=== PATIENT | female | born 1945 | race Caucasian/White ===

== ENCOUNTER → 2020-03-26 11:30 | Outpatient (CLI) | payer MEDICARE, OTHER, SELFPAY | PROVIDERS: PCP Nurse Practitioner Family; Referring Provider Orthopaedic Surgery; Visit Provider Orthopaedic Surgery | DX: Z01.818 Encounter for other preprocedural examination (principal) | CPT/HCPCS: 36415; 83735; 87077; 87081 ==

== ENCOUNTER 2020-05-07 08:54 | Observation (INO) | payer MEDICARE, OTHER, SELFPAY ==
[2020-05-07] VITALS (14 sets, daily range): BP systolic 102–142; BP diastolic 60–94; PULSE 75–103; RESP 14–20; TEMP 35.8–36.9; O2SAT 93–100; BMI 27.8
[2020-05-07] MEDS: Acetaminophen 500 MG Tablet 1000 MG PO ×2 (07:00→22:01)
[2020-05-07] MEDS: Lactated Ringers 1,000 ML 100 ML IV (09:40)
[2020-05-07 09:46] LABS: Bedside Glucose 109 mg/dL (70-110)
[2020-05-07] MEDS: Cefazolin 2 GM in 0.9% Normal Saline 100 ML IV (10:01)
--- NOTE | 2020-05-07 10:25 | FEM_PTH ---
PATIENT: TOMA BUENO LOC: MS3 U#:[id number] AGE/SX: 74/F [place] [facility] [place] RE05/07/[address]: Dr. Quinton Austin DO : 1945 BED: 1 DIS: 05/08/2020 SPEC #: [id number] RECD: 05/07/20 11:58 STATUS: LUCILLE REQ #: [id number] [place]: 05/07/20 10:[address]: Quinton Austin DEPT: SURGICAL PATHOLOGY RECD BY: Marj Martinez ENTERED: 05/07/20 13:48 SP TYPE: FEM HEAD OTHR DR: Ema Moyer, RONEY Tissues: Femoral region, NOS Procedures: Decalcification bone/plaque Surgery Specimen Level V HEADER OPERATION: ERAS, total hip replacement PRE-OP DIAGNOSIS: Primary osteoarthritis TISSUE SUBMITTED: Left hip bone MICROSCOPIC DIAGNOSIS Left hip bone, total hip replacement/resection: Femoral head with degenerative osteoarthritic changes. SJ:shayna 05/10/2020 MICROSCOPIC DESCRIPTION Slides are reviewed. GROSS DESCRIPTION Received is one container labeled with the patient's name and designated bone and soft tissue hip, left. The specimen consists of a weber femoral head measuring 7 x 5.5 x 5.5 cm. The articular surface displays prominent osteophyte formation, eburnation and bone erosion. Also present in the specimen container are multiple irregular fragments of bone reamings and pink-yellow soft tissue measuring in aggregate 4 x 3 x 1 cm. Wood Cabinetmaker sections are submitted in two cassettes as follows: 1 - soft tissue and bone reamings after decalcification, 2 - bone after decalcification. / AM:shayna 05/07/20 TC:5 CPT: 07324, 23528
--- NOTE | 2020-05-07 11:13 | PCM.OPRPT ---
Report of Operation Date of Procedure: 05/07/20 Pre-Operative Diagnosis: OA left hip Post-Operative Diagnosis: same Surgery/Procedure Performed:: Left THR Description of Surgical Findings:: Primary Surgeon/Physician: Quinton Austin bankruptcy law specialist: Sandeep Guzman PA-C bankruptcy law specialist: Pre-Operative Diagnosis: OA left hip Post-Operative Diagnosis: same Surgery/Procedure Performed: Left THR Estimated Blood Loss: 50 cc Specimen's Removed: femoral head Type of Anesthesia: spinal ASA Class: ASA3 Severe Disease Implants: [[place] tritanium 54 mm cup, 25 mm screw, MDM\ceramic femoral head + 0, size 5 Accolade 2 femoral stem ] Surgical Indications: Patient has severe end-stage osteoarthritic changes in the [left ] hip. They have failed conservative measures including activity modification, anti-inflammatories, use of assistive devices. This to the point where the pain affects their ability to enjoy life and complete activities of daily living without discomfort. Patient has elected to undergo the above procedure Procedure Description: The patient was greeted in the preoperative area the [left ] hip was marked with surgical marker preoperative antibiotics administered. The patient was then taken to or suite in stable condition. Preoperative tranexamic acid was also utilized. Once the patient was placed in the supine position on the operating room table and once adequate anesthesia was obtained they were then placed in the lateral decubitus position with the surgical hip facing the field. All bony prominences were well-padded. A commercial hip position was utilized. The appropriate extremity was then prepped and draped in usual sterile fashion. Ioban was placed on the skin. Surgical timeout was performed and surgery was commenced. A standard posterior approach to the hip was then performed. Incision was planned and carried out with a #10 blade scalpel. Dissection was then carried length of the incision to the IT band which was split proximally and distally. A Charnley retractor was then placed for soft tissue retraction exposing the piriformis. A standard posterior capsulotomy was performed. Severe eburnation of bone was noted and periarticular osteophytes were identified consistent with severe end-stage osteoarthritis. A femoral neck osteotomy guide was used to antonia the proximal femur. A femoral osteotomy was then created approximately 1 fingerbreadth above the lesser trochanter. This was measured and placed on the back table. Once this was complete acetabular retractors were placed anteriorly and posteriorly. Labrum was then removed from the acetabulum exposing the entire cup of the acetabulum. Sequential reaming was then commenced and the acetabulum was medialized and sequentially widened in order to accommodate appropriate size cup. The acetabular cup was then impacted into position to the appropriate depth referencing approximately 30? anteversion and 45? of inclination. Excellent purchase was obtained. [1] appropriate sized cancellous screw was placed in the cup. An appropriate size MDM liner was then placed. Attention was then turned to the femoral preparation. The hip was placed in the 90/90 position and a lateralizing box osteotome was utilized. Femoral starting awl was used followed by sequential broaching to the appropriate size. Excellent purchase was obtained with the stem no stem subsidence and excellent rotational stability was confirmed. A calcar reamer was then used in the trial head neck was placed on the broach. The hip was then located and taken through full range of motion flexion internal and external rotation as well as extension. Excellent stability was noted no impingement was identified of the components and leg lengths appear to be appropriate. The hip was at this point dislocated and the trial femoral components were removed. The final femoral stem was then implanted and impacted to the appropriate depth. Again excellent purchase was obtained no stem subsidence or rotational instability was noted. The hip was once again trialed and confirmation of leg length and stability was performed. Soft tissue tension also appeared to be appropriate. At this point the hip was redislocated and the trunnion was cleaned and dried meticulously in the appropriate size MDM femoral head was placed on the clean dry trunnion using a 12/14 Hoffmann taper. The hip was once again relocated and again taken through full range of motion. I did inject a cocktail of postoperative pain medication in the deep and superficial tissues. Copious irrigation was performed. Anatomic closure of the piriformis tendon was performed through drill holes in the greater trochanter. A #1 Vicryl 0 Vicryl was utilized in subcutaneous tissue and surgical kina were placed in the skin. A well-padded nonadherent dressing was applied. Patient was taken to PACU in stable condition. No complications were identified. Will follow standard postop protocol for total hip arthroplasty. My assistant men's soccer coach, Mr. Guzman, played a vital role in the procedure beginning with positioning, holding retraction of soft tissues, positioning the leg to optimize visualization during the procedure and assisting with wound closure. bankruptcy law specialist: Michael Guzman Type of Anesthesia:: Spinal Anesthesiologist: Aron Turner Specimen's removed: femoral head Estimated Blood Loss (mL): 50 cc Fluids Replaced: 1000 cc crystalloid - Admit VTE Documentation VTE Present on Admission: No VTE Mechan Device Prophylaxis: SCD's, Thigh High TOR Hose VTE Pharm Prophylaxis ordered?: Yes
[2020-05-07] MEDS: Lactated Ringers 1,000 ML 999 ML IV (11:49)
--- NOTE | 2020-05-07 12:04 | RAD_ITS ---
STUDY: X-RAY - PELVIS AND LEFT HIP REASON FOR EXAM: Female, 74 years old. POST OP LEFT TOTAL HIP REPLACEMENT TECHNIQUE: 2 views of the pelvis and hip. COMPARISON: None. FINDINGS: Status post left total hip replacement. There is good alignment. Postoperative soft tissue swelling. RAD/Hip Min 2 Views (Portable) IMPRESSION: Status post left total hip replacement. There is good alignment. Postoperative soft tissue changes. Electronically Signed: Vu Street MD at 12:22 EST , Service support ,
[2020-05-07 12:10] LABS: Hematocrit 38.7 % (37-47); Hemoglobin 12.3 g/dL (12.0-15.0); Mean Corp Hgb Conc 31.8 g/dL (32-36); Mean Corpuscular Hgb 30.4 pg (27.0-32.0); Mean Corpuscular Volume 95.6 fL (81-99); Mean Platelet Vol. 11.7 fl (6.2-12.0); Platelet Count 204 K/mm3 (150-450); RBC Distribution Width CV 12.8 % (11.6-14.6); RBC Distribution Width SD 45.2 fl (35.1-43.9); Red Blood Count 4.05 M/mm3 (4.2-5.4); White Blood Count 8.5 K/mm3 (4.4-11.0)
[2020-05-07 12:27] LABS: Anion Gap 5 (5-15); BUN 8 mg/dL (7-18); BUN/Creat Ratio 10.7 RATIO (10-20); Calcium,Total 8.8 mg/dL (8.5-10.1); Chloride 108 mmol/L (98-107); Creatinine, Serum 0.75 mg/dL (0.55-1.02); EST Glomerular Filtration Rate 81 mL/min (>60); Est Glom Filt Rate - Afr Amer 97 mL/min (>60); Estimated Creatinine Clearance 43.27 ml/min; Glucose 116 mg/dL (74-106); Potassium 3.9 mmol/L (3.5-5.1); Sodium Level 140 mmol/L (136-145)
[2020-05-07] MEDS: Lactated Ringers 1,000 ML 125 ML IV ×3 (14:57→23:22)
[2020-05-07] MEDS: oxyCODONE 5 MG Tablet PO ×2 (16:43→22:00)
[2020-05-07] MEDS: Cefazolin 1 GM/50 ML BAG IV (18:07)
[2020-05-07] MEDS: MELATONIN 10 MG TABLET 5 MG PO (22:01)
[2020-05-07] MEDS: Senna/Docusate Sodium 1 Tablet 2 TABLET PO (22:01)
[2020-05-07] MEDS: Famotidine 20 MG Tablet PO (22:01)
[2020-05-07] MEDS: Pravastatin 20 MG Tablet PO (22:01)
[2020-05-08 02:27] VITALS: BP 99/48; PULSE 64; RESP 16; TEMP 36.4; O2SAT 92
[2020-05-08] MEDS: Cefazolin 1 GM/50 ML BAG IV (02:33)
[2020-05-08] MEDS: Acetaminophen 500 MG Tablet 1000 MG PO (06:07)
[2020-05-08] MEDS: 0.9% NaCl Peripheral Flush Adult/Peds IV (06:09)
[2020-05-08] MEDS: oxyCODONE 5 MG Tablet PO ×2 (06:13→12:52)
[2020-05-08 06:18] VITALS: BP 108/56; PULSE 66; RESP 20; TEMP 36.6; O2SAT 94
[2020-05-08 07:06] LABS: Hemoglobin 10.2 g/dL (12.0-15.0); Mean Corp Hgb Conc 31.9 g/dL (32-36); Mean Corpuscular Hgb 30.3 pg (27.0-32.0); Mean Platelet Vol. 12.1 fl (6.2-12.0); Platelet Count 184 K/mm3 (150-450); RBC Distribution Width SD 44.5 fl (35.1-43.9); Red Blood Count 3.37 M/mm3 (4.2-5.4)
[2020-05-08 07:30] LABS: Anion Gap 6 (5-15); BUN 8 mg/dL (7-18); BUN/Creat Ratio 9.8 RATIO (10-20); Calcium,Total 8.9 mg/dL (8.5-10.1); Chloride 105 mmol/L (98-107); Creatinine, Serum 0.82 mg/dL (0.55-1.02); EST Glomerular Filtration Rate 73 mL/min (>60); Est Glom Filt Rate - Afr Amer 88 mL/min (>60); Estimated Creatinine Clearance 52.76 ml/min; Glucose 128 mg/dL (74-106); Potassium 4.1 mmol/L (3.5-5.1); Sodium Level 137 mmol/L (136-145)
--- NOTE | 2020-05-08 07:37 | PCM.PN.ORT ---
Subjective: Patient sitting at bedside. Patient states pain is been very well managed. Patient denies chest pain, shortness of breath, calf pain, nausea vomiting. Patient has no other complaints at this time. Patient states she is ready for discharge home. Objective: Dressings clean dry intact. Negative signs and symptoms of DVT. Vital signs and labs reviewed noted in the medical record. Patient is afebrile. Patient is in no respiratory distress, speaking in full sentences. Patient is neurovascular otherwise intact. - Physical Exam Vitals/I&O's: Vital Signs Temp Pulse Resp BP Pulse Ox 97.9 F 66 20 H 108/56 L 94 05/08/20 06:18 05/08/20 06:18 05/08/20 06:18 05/08/20 06:18 05/08/20 06:18 Oxygen Flow Rate (L/min) 6 Oxygen Delivery Method Room Air Weight: 73.6 kg Body Mass Index (BMI) 27.8 Intake and Output for Last 24 Hours 05/06/20 05/07/20 05/08/20 23:59 23:59 23:59 Intake Total 5167.83 / 6167.83 2268.75 / 2268.75 Output Total 100 / 100 400 / 400 Balance 5067.83 / 6067.83 1868.75 / 1868.75 General: Alert, Oriented x3 HEENT: PERRLA Oral: Moist Mucosa Skin: No rashes Neurological: Cranial nerves II-XII grossly intact Psych/Mental Status: Normal Affect, Alert and oriented to time, place, person, mood and affect Laboratory Results 05/07/20 09:41: POC Glucose 109 05/07/20 11:55: WBC 8.5, RBC 4.05 L, Hgb 12.3, Hct 38.7, MCV 95.6, MCH 30.4, MCHC 31.8 L, RDW Std Deviation 45.2 H, RDW Coeff of Ridge 12.8, Plt Count 204, MPV 11.7 05/07/20 11:55: Sodium 140, Potassium 3.9, Chloride 108 H, Carbon Dioxide 27.0, Anion Gap 5, BUN 8, Creatinine 0.75, Estim Creat Clear Calc 43.27, Est GFR (MDRD) Af Amer 97, Est GFR (MDRD) Non-Af 81, BUN/Creatinine Ratio 10.7, Glucose 116 H, Calcium 8.8 05/08/20 06:38: WBC 10.0, RBC 3.37 L, Hgb 10.2 L, Hct 32.0 L, MCV 95.0, MCH 30.3, MCHC 31.9 L, RDW Std Deviation 44.5 H, RDW Coeff of Ridge 13.0, Plt Count 184, MPV 12.1 H 05/08/20 06:38: Sodium 137, Potassium 4.1, Chloride 105, Carbon Dioxide 26.0, Anion Gap 6, BUN 8, Creatinine 0.82, Estim Creat Clear Calc 52.76, Est GFR (MDRD) Af Amer 88, Est GFR (MDRD) Non-Af 73, BUN/Creatinine Ratio 9.8 L, Glucose 128 H, Calcium 8.9 Current Medications Acetaminophen (Acetaminophen 500 Mg Tablet) 1,000 mg PO Q8 [facility] Last Admin: 05/08/20 06:07 Dose: 1,000 mg Documented by: Albuterol Sulfate (Albuterol 2.5 Mg/3 Ml Vial.Neb.) 2.5 mg INHALATION Q6H PRN PRN PRN Reason: PULMONARY STENOSIS Aspirin (Aspirin 81 Mg Tab.Chew) 81 mg PO DAILY@0800 [facility] Famotidine (Famotidine 20 Mg Tablet) 20 mg PO BID [facility] Last Admin: 05/07/20 22:01 Dose: 20 mg Documented by: Lactated Ringer's () 1,000 mls @ 125 mls/hr IV .Q8H [facility] Last Infusion: 05/08/20 06:19 Dose: 0 mls/hr Documented by: Melatonin (Melatonin 10 Mg Tablet) 5 mg PO QHS [facility] Last Admin: 05/07/20 22:01 Dose: 5 mg Documented by: Metoprolol Succinate (Metoprolol(Xl)Succ 50 Mg Tablet) 75 mg PO DAILY [facility] Last Admin: 05/07/20 15:52 Dose: Not Given Documented by: Ondansetron HCl (Ondansetron 4 Mg/2 Ml Vial) 4 mg IV Q8H PRN PRN PRN Reason: NAUSEA Oxycodone HCl (Oxycodone 5 Mg Tablet) 5 - 10 mg PO Q4H PRN PRN PRN Reason: Pain Score 4-10 Last Admin: 05/08/20 06:13 Dose: 5 mg Documented by: Pravastatin Sodium (Pravastatin 20 Mg Tablet) 20 mg PO QHS [facility] Last Admin: 05/07/20 22:01 Dose: 20 mg Documented by: Promethazine HCl (Promethazine 25 Mg/Ml Syringe) 12.5 mg IM Q6H PRN PRN; Protocol PRN Reason: NAUSEA/VOMITING Senna/Docusate Sodium (Senna/Docusate Sodium 1 Tablet) 2 tablet PO BID [facility] Last Admin: 05/07/20 22:01 Dose: 2 tablet Documented by: Sodium Chloride (0.9% Nacl Peripheral Flush Adult/Peds) 5 - 15 ml IV UD PRN PRN Reason: SALINE FLUSH Last Admin: 05/08/20 06:09 Dose: 10 ml Documented by: Sodium Chloride (0.9% Saline Lock 10 Ml Syringe) 10 - 40 ml IV UD PRN PRN Reason: SALINE FLUSH Medical Necessity - Tobacco Use Smoking Status: Never smoker Tobacco Use: Non-smoker
--- NOTE | 2020-05-08 07:47 | PCM.DC.THR ---
Discharge Diet: No Restrictions Discharge Activity: May Not Drive, May Shower, Use Walker May shower in (days): 3 - only if incision is dry and without drainage. Do NOT soak/submerge in tub/pool/singh/stream/hot tub. May resume sexual activity in: No Restrictions Ice area for (Minutes): 20 - every hour while awake Weight Bearing Status: Weight bearing as tolerated Lifting Restrictions: 20 pounds Elevate: Operative Extremity Call your doctor if your incision/area has: Continuous Slow Oozing, Sudden Increased Bleeding, Increased Pain/ Swelling, Increased Redness, Foul Smelling Discharge Call your doctor if you observe: Fever of 101 or Higher, Inability to urinate, Inability to have a bowel movement, Shortness of breath, Fainting spells, Chest pain, Increased palpitations (irregular heartbeat), Calf discomfort, Uncontrolled pain Change Dressing in (Days):: 1 - Change daily and as needed. Cleanse incision/area with: Soap & Water Allergies/Adverse Reactions: Allergies No Known Allergies Allergy (Verified 05/07/20 09:01) Medications to take at Discharge Calcium Carbonate/Vitamin D3 [Calcium 600 mg-Vit D3 10Mcg Tb] 1 ea PO BID 03/19/20 Famotidine 20 mg PO BID 03/19/20 Goldenseal/Echinacea Purpurea [Echinacea & Goldenseal Cap] 1 ea PO DAILY 03/19/20 Metoprolol Succinate [Toprol Xl] 75 mg PO DAILY 03/19/20 Pravastatin [Pravachol] 20 mg PO DAILY 03/19/20 Vitamin B Complex 1 ea PO DAILY 03/19/20 Albuterol IH (ProAir) [Proair Hfa] 2 puff INHALATION Q6H PRN PRN 04/23/20 Melatonin 5 mg PO QHS 04/23/20 Acetaminophen [Tylenol] 1,000 mg PO Q8 #90 tab 05/08/20 Aspirin [Aspirin, Baby] 81 mg PO DAILY@0800 #60 tab.chew 05/08/20 Oxycodone [Oxyir] 5 - 10 mg PO Q4H PRN PRN 7 Days #84 tab 05/08/20 Senna/Docusate Sodium [Senokot-S] 2 tab PO BID tab 05/08/20 The following prescriptions were given: Aspirin [Aspirin, Baby] 81 mg PO DAILY@0800 #60 tab.chew Transmission Status: Received by [id number] Oxycodone [Oxyir] 5 - 10 mg PO Q4H PRN PRN 7 Days #84 tab PRN Reason: Pain Score 4-10 Transmission Status: Sent to [facility] Acetaminophen [Tylenol] 1,000 mg PO Q8 #90 tab Transmission Status: Received by [id number] Primary Care Physician: Ema Moyer COMPUTER METHODS ANALYST, COMPUTER METHODS ANALYST-C [Primary Care Provider] - Test Results: Test results from this visit will be discussed in further detail at your follow-up appointment, if applicable. Please Follow Up With: Michael Guzman PA-C When: as schuedled (see pink sheet)
[2020-05-08] MEDS: Aspirin 81 MG TAB.CHEW PO (08:49)
[2020-05-08 08:52] VITALS: BP 107/56; PULSE 72; RESP 18; TEMP 36.5; O2SAT 96
--- NOTE | 2020-05-08 10:15 | CASEMGMT ---
RN CM Face to Face with patient for initial transition planning/care coordination assessment. RN CM introduced self and role at [facility]. Patient sitting in chaie, alert and oriented. Patient willing to participate in assessment and is able to answer all questions appropriately. Care providers, pharmacy, and demographics verified. Patient wishes to discharge home and is setup with outpatient therapy at [facility]. Patient states she has no further needs or concerns at this time. CM to follow for discharge planning needs that may arise. PCP: Ema Moyer NP Specialists: Eduardo Seam Checker Preferred Pharmacy: [facility] Insurance: MCR, [employer] Prescription Benefit: yes Living Will/HPOA: yes, daughter Mary Dorman LNOK: daughter Living Arrangements: Patient lives alone in a single floor apartment with no steps. Patient states she was independent at home prior to surgery. Transportation: daughter DME/HHC: Patient states she has hip kit and walker at home. Patient is setup with [facility] for outpatient therapy starting Thursday Disposition Plan: Patient to discharge home with outpatient therapy, family support, and follow-up plans in place. Rossy VERA, RN, CM
[2020-05-08] MEDS: Senna/Docusate Sodium 1 Tablet 2 TABLET PO (10:22)
[2020-05-08] MEDS: Famotidine 20 MG Tablet PO (10:22)
[2020-05-08 10:27] VITALS: BP 104/56; PULSE 72
--- NOTE | 2020-05-08 11:09 | PHA.DC.MC ---
Pharmacy Service has performed discharge medication reconciliation and counseling for this patient. 1. ACETAMINOPHEN 1000MG PO Q8H 2. ASPIRIN 81MG PO DAILY 3. OXYCODONE 5-10MG PO Q4H PRN PAIN 4-10 4. SENNA/DOCUSATE 2T PO BID The patient's discharge medication list was reviewed for discrepancies and discrepancies were resolved. Home Medications Calcium Carbonate/Vitamin D3 [Calcium 600 mg-Vit D3 10Mcg Tb] 1 ea PO BID 03/19/20 Famotidine 20 mg PO BID 03/19/20 Goldenseal/Echinacea Purpurea [Echinacea & Goldenseal Cap] 1 ea PO DAILY 03/19/20 Metoprolol Succinate [Toprol Xl] 75 mg PO DAILY 03/19/20 Pravastatin [Pravachol] 20 mg PO DAILY 03/19/20 Vitamin B Complex 1 ea PO DAILY 03/19/20 Albuterol IH (ProAir) [Proair Hfa] 2 puff INHALATION Q6H PRN PRN 04/23/20 Melatonin 5 mg PO QHS 04/23/20 Acetaminophen [Tylenol] 1,000 mg PO Q8 #90 tab 05/08/20 Aspirin [Aspirin, Baby] 81 mg PO DAILY@0800 #60 tab.chew 05/08/20 Oxycodone [Oxyir] 5 - 10 mg PO Q4H PRN PRN 7 Days #84 tab 05/08/20 Senna/Docusate Sodium [Senokot-S] 2 tab PO BID tab 05/08/20 The patient was counseled on the following discharge medications and changes in medications for homegoing were reviewed. The Reason for Use, instructions for use, and potential side effects were reviewed for all new medications. The patient's questions regarding all of their medications were answered. The patient was able to verbally demonstrate an understanding of their discharge medications. Patient counseled by clinical pharmacy coordinator, Dina.
[2020-05-08 12:54] VITALS: BP 142/58; PULSE 73; RESP 18; TEMP 36.7; O2SAT 98
[2020-05-08 12:58] VITALS: BP 142/58; PULSE 73
[2020-05-08] MEDS: Metoprolol(XL)Succ 50 MG Tablet 75 MG PO (12:58)
== END 2020-05-08 14:36 | disposition home or self-care (01) ==
LOC: SDC 10:29 → MS3 10:29
PROVIDERS: Admitting Provider Orthopaedic Surgery; PCP Nurse Practitioner Family; Referring Provider Orthopaedic Surgery; Visit Provider Orthopaedic Surgery
PROC: 0SRB0JZ Replacement of Left Hip Joint with Synthetic Substitute, Open Approach (ICD-10-PCS; CPT 27130; principal; 2020-05-07 10:00)
DX: M16.12 Unilateral primary osteoarthritis, left hip (principal); I10 Essential (primary) hypertension; Z79.899 Other long term (current) drug therapy; J44.9 Chronic obstructive pulmonary disease, unspecified; J84.9 Interstitial pulmonary disease, unspecified; K21.9 Gastro-esophageal reflux disease without esophagitis; E78.00 Pure hypercholesterolemia, unspecified
CPT/HCPCS: 01214; 27130; 36415; 73502; 80048; 82962; 85027; 87426; 88307; 88311; 96361; 96365; 96366; 97110; 97116; 97161; 97166; 97530; 97535; 99218; C1776; C9803; J7120; A4216; G0378; G0379; J2405